=== PATIENT | female | born 1960 | race Caucasian/White ===

== ENCOUNTER 2018-11-27 19:07 | Inpatient (IN) ==
[2018-11-27] MEDS ORDERED: HYDROmorphone 2 MG/1 ML VIAL IV STA (19:41)
[2018-11-27] MEDS ORDERED: ONDANSETRON 4 MG/2 ML VIAL IV STA (19:41)
[2018-11-27 20:59] LABS: Basophils # 0.1 10*3/uL (0.0-0.2); Basophils % 0.5 % (0.0-0.8); Eosinophils # 0.2 10*3/uL (0.0-0.87); Eosinophils % 1.8 % (0.00-10.9); Hematocrit 37.8 VOL% (35.7-47.0); Hemoglobin 12.1 GM/DL (12.0-16.0); Immature Granulocytes % 0.6 %; Immature Granulocytes Absolute 0.08 #; Lymphocytes # 2.3 10*3/uL (1.4-4.0); Lymphocytes % 18.5 % (21.3-54.2); Mean Corpuscular Volume 95.9 FL (87-102); Mean Platelet Volume 10.2 FL (9.6-12.0); Monocytes % 5.7 % (1.7-12.7); Neutrophils % 72.9 % (38.7-73.9); Platelet Count 261 T/CUMM (130-400); Red Blood Count 3.94 MC/CUMM (3.8-5.5); Red Cell Distribution Width 12.9 % (9.3-17.3); White Blood Count 12.5 T/CUMM (4-12)
[2018-11-27 21:08] LABS: Alanine Aminotransferase 26 U/L (13-56); Albumin 3.6 G/DL (3.4-5.0); Alkaline Phosphatase 174 U/L (45-117); Aspartate Amino Transferase 16 U/L (0-37); Bilirubin,Total < 0.39 MG/DL (0.2-1.0); Blood Urea Nitrogen 57 MG/DL (7-18); Calcium 8.8 MG/DL (8.5-10.1); Glucose 141 MG/DL (74-106); INR 0.9; Osmolality,Calculated 290.8 MOS/KG (273-304); PT Patient Result 9.4 SECS; Total Protein 6.9 G/DL (6.4-8.3)
[2018-11-27] MEDS ORDERED: HYDROmorphone 2 MG/1 ML VIAL IV ONE ×2 (21:46→23:52)
[2018-11-27] MEDS ORDERED: GLUCAGON 1 MG VIAL IM PRN (23:31)
[2018-11-27] MEDS ORDERED: DEXTROSE 50% 25 GM/50 ML VIAL IV PRN (23:31)
[2018-11-27] MEDS ORDERED: ONDANSETRON 4 MG/2 ML VIAL IV PRN (23:31)
[2018-11-27] MEDS ORDERED: MAGNESIUM HYDROXIDE SUSP 30 ML UDCUP PO PRN (23:31)
[2018-11-28] MEDS: INSULIN REGULAR 100 UNIT/ML SUBCUT SCH ×4 (01:15→18:47)
[2018-11-28] MEDS: SODIUM CHLORIDE 0.9% 1,000 ML IV SCH ×2 (01:15→23:45)
[2018-11-28] MEDS: HYDROmorphone 2 MG/1 ML VIAL IV PRN ×2 (02:27→05:53)
[2018-11-28] MEDS ORDERED: METHOCARBAMOL 750 MG TABLET PO PRN (04:28)
[2018-11-28 05:08] LABS: Basophils # 0.1 10*3/uL (0.0-0.2); Basophils % 0.5 % (0.0-0.8); Eosinophils # 0.2 10*3/uL (0.0-0.87); Eosinophils % 1.6 % (0.00-10.9); Hematocrit 35.4 VOL% (35.7-47.0); Hemoglobin 11.6 GM/DL (12.0-16.0); Immature Granulocytes % 0.3 %; Immature Granulocytes Absolute 0.03 #; Lymphocytes # 2.2 10*3/uL (1.4-4.0); Lymphocytes % 21.9 % (21.3-54.2); Mean Corpuscular HGB Conc 32.8 GM/DL (32-36); Mean Corpuscular Volume 95.9 FL (87-102); Mean Platelet Volume 10.2 FL (9.6-12.0); Monocytes % 8.3 % (1.7-12.7); Neutrophils % 67.4 % (38.7-73.9); Platelet Count 238 T/CUMM (130-400); Red Blood Count 3.69 MC/CUMM (3.8-5.5); White Blood Count 9.8 T/CUMM (4-12)
[2018-11-28 05:18] LABS: Albumin 3.3 G/DL (3.4-5.0); Bilirubin,Total 0.6 MG/DL (0.2-1.0); Calcium 8.6 MG/DL (8.5-10.1); Osmolality,Calculated 295.8 MOS/KG (273-304); Total Protein 6.5 G/DL (6.4-8.3)
[2018-11-28] MEDS ORDERED: ceFAZolin 1,000 MG in SYRINGE 1 EACH IV ONE ×2 (06:00→09:00)
[2018-11-28] MEDS ORDERED: FLUDROCORTISONE 0.1 MG TABLET PO PRN (09:00)
[2018-11-28] MEDS: GABAPENTIN 600 MG TABLET PO SCH ×4 (10:07→21:26)
[2018-11-28] MEDS: VENLAFAXINE XR 75 MG CAPSULE PO SCH (10:07)
[2018-11-28] MEDS ORDERED: PROMETHAZINE 25 MG/1 ML VIAL IM PRN (10:19)
[2018-11-28] MEDS ORDERED: diphenhydrAMINE CAP 25 MG CAPSULE PO PRN (10:19)
[2018-11-28] MEDS ORDERED: BISACODYL 10 MG SUPP RECTAL PRN (10:19)
[2018-11-28] MEDS ORDERED: LACTULOSE 20 GM/30 ML UDCUP PO PRN (10:19)
[2018-11-28] MEDS ORDERED: hydrOXYzine HCL 25 MG TABLET PO PRN (10:24)
[2018-11-28] MEDS ORDERED: PROMETHAZINE 25 MG TABLET PO PRN (10:24)
[2018-11-28] MEDS ORDERED: HYDROmorphone 2 MG/1 ML VIAL IV PRN (10:24)
[2018-11-28] MEDS ORDERED: SEVOFLURANE 1 UNIT/15 MINUTE INH ONE (10:38)
[2018-11-28] MEDS ORDERED: PROPOFOL 200 MG/20 ML VIAL IV ONE (10:38)
[2018-11-28] MEDS ORDERED: fentaNYL 100 MCG/2 ML VIAL ONE (10:39)
[2018-11-28] MEDS ORDERED: MIDAZOLAM 2 MG/2 ML VIAL ONE (10:39)
[2018-11-28] MEDS ORDERED: ePHEDrine 50 MG/ML AMP ONE (10:40)
[2018-11-28] MEDS ORDERED: SCOPOLAMINE 1.5 MG PATCH TRANSDERM ONE (10:40)
[2018-11-28] MEDS ORDERED: ONDANSETRON 4 MG/2 ML VIAL ONE (10:40)
[2018-11-28] MEDS ORDERED: GLYCOPYRROLATE 0.4 MG/2 ML VIAL ONE (10:40)
[2018-11-28] MEDS ORDERED: DEXAMETHASONE 4 MG/1 ML VIAL ONE (10:40)
[2018-11-28] MEDS ORDERED: KETOROLAC 60 MG/2 ML VIAL IM ONE (10:40)
[2018-11-28] MEDS ORDERED: ACETAMINOPHEN 1,000 MG/100 ML VIAL IV ONE (10:41)
[2018-11-28] MEDS ORDERED: NEOSTIGMINE 10 MG/10 ML VIAL ONE (10:41)
[2018-11-28] MEDS ORDERED: ROCURONIUM 100 MG/10 ML VIAL IV ONE (10:41)
[2018-11-28] MEDS ORDERED: SODIUM CHLORIDE 0.9% 1,000 ML IV ONE (10:41)
[2018-11-28] MEDS ORDERED: PHENYLEPHRINE 1 MG/10 ML SYRINGE IV ONE (10:41)
[2018-11-28] MEDS: oxyCODONE/ACETAMINOPHEN 5-325 MG TABLET PO PRN ×2 (13:50→17:01)
[2018-11-28] MEDS ORDERED: TUBERCULIN SKIN TEST 0.1 ML SYRINGE INTRADERM ONE (14:16)
[2018-11-28] MEDS: ceFAZolin 1,000 MG in SYRINGE 1 EACH IV SCH (16:55)
[2018-11-28] MEDS: traMADol 50 MG TABLET PO SCH ×2 (16:56→21:27)
[2018-11-28] MEDS: TEMAZEPAM 15 MG CAPSULE PO SCH (21:26)
[2018-11-28] MEDS: PANTOPRAZOLE 20 MG TABLET PO SCH (21:26)
[2018-11-28] MEDS: QUEtiapine 100 MG TABLET PO SCH (21:27)
[2018-11-29] MEDS: ceFAZolin 1,000 MG in SYRINGE 1 EACH IV SCH ×3 (01:53→16:00)
[2018-11-29] MEDS: SODIUM CHLORIDE 0.9% 1,000 ML IV SCH ×2 (02:50→15:31)
[2018-11-29 04:39] LABS: Basophils % 0.2 % (0.0-0.8); Eosinophils % 0.1 % (0.00-10.9); Hematocrit 29.1 VOL% (35.7-47.0); Hemoglobin 9.3 GM/DL (12.0-16.0); Immature Granulocytes % 0.4 %; Immature Granulocytes Absolute 0.04 #; Lymphocytes # 1.4 10*3/uL (1.4-4.0); Lymphocytes % 13.7 % (21.3-54.2); Mean Platelet Volume 10.4 FL (9.6-12.0); Monocytes % 6.2 % (1.7-12.7); Neutrophils % 79.4 % (38.7-73.9); Platelet Count 189 T/CUMM (130-400); Red Blood Count 2.94 MC/CUMM (3.8-5.5); Red Cell Distribution Width 13.1 % (9.3-17.3); White Blood Count 10.1 T/CUMM (4-12)
[2018-11-29 05:15] LABS: Calcium 7.9 MG/DL (8.5-10.1)
[2018-11-29] MEDS: FONDAPARINUX 2.5 MG/0.5 ML SYRINGE SUBCUT SCH (05:28)
[2018-11-29] MEDS: INSULIN REGULAR 100 UNIT/ML SUBCUT SCH ×4 (05:41→18:13)
[2018-11-29] MEDS: oxyCODONE/ACETAMINOPHEN 5-325 MG TABLET PO PRN ×2 (09:50→18:44)
[2018-11-29] MEDS: VENLAFAXINE XR 75 MG CAPSULE PO SCH (09:52)
[2018-11-29] MEDS: TORSEMIDE 20 MG TABLET PO SCH (09:54)
[2018-11-29] MEDS: GABAPENTIN 600 MG TABLET PO SCH ×4 (09:54→21:24)
[2018-11-29] MEDS: CLOPIDOGREL 75 MG TABLET PO SCH (09:55)
[2018-11-29] MEDS: LEVOTHYROXINE 137 MCG TABLET PO SCH (09:56)
[2018-11-29] MEDS: traMADol 50 MG TABLET PO SCH ×3 (11:24→21:23)
[2018-11-29] MEDS: QUEtiapine 100 MG TABLET PO SCH (21:23)
[2018-11-29] MEDS: PANTOPRAZOLE 20 MG TABLET PO SCH (21:23)
[2018-11-29] MEDS: TEMAZEPAM 15 MG CAPSULE PO SCH (21:24)
[2018-11-30] MEDS: INSULIN REGULAR 100 UNIT/ML SUBCUT SCH ×4 (00:34→19:24)
[2018-11-30 04:47] LABS: Basophils # 0.1 10*3/uL (0.0-0.2); Basophils % 0.6 % (0.0-0.8); Eosinophils # 0.2 10*3/uL (0.0-0.87); Eosinophils % 2.4 % (0.00-10.9); Hematocrit 29.1 VOL% (35.7-47.0); Hemoglobin 9.2 GM/DL (12.0-16.0); Immature Granulocytes % 0.2 %; Immature Granulocytes Absolute 0.02 #; Lymphocytes # 2.2 10*3/uL (1.4-4.0); Lymphocytes % 26.2 % (21.3-54.2); Mean Corpuscular HGB Conc 31.6 GM/DL (32-36); Mean Corpuscular Volume 100.3 FL (87-102); Mean Platelet Volume 10.4 FL (9.6-12.0); Monocytes % 9.1 % (1.7-12.7); Neutrophils % 61.5 % (38.7-73.9); Platelet Count 192 T/CUMM (130-400); White Blood Count 8.4 T/CUMM (4-12)
[2018-11-30 05:12] LABS: Calcium 8.3 MG/DL (8.5-10.1); Osmolality,Calculated 288.7 MOS/KG (273-304)
[2018-11-30] MEDS: FONDAPARINUX 2.5 MG/0.5 ML SYRINGE SUBCUT SCH (06:35)
[2018-11-30] MEDS: ceFAZolin 1,000 MG in SYRINGE 1 EACH IV SCH ×2 (08:00)
[2018-11-30] MEDS: oxyCODONE/ACETAMINOPHEN 5-325 MG TABLET PO PRN (08:35)
[2018-11-30] MEDS: traMADol 50 MG TABLET PO SCH ×3 (08:36→21:00)
[2018-11-30] MEDS: GABAPENTIN 600 MG TABLET PO SCH ×4 (08:36→21:00)
[2018-11-30] MEDS: TORSEMIDE 20 MG TABLET PO SCH (08:36)
[2018-11-30] MEDS: VENLAFAXINE XR 75 MG CAPSULE PO SCH (08:36)
[2018-11-30] MEDS: LEVOTHYROXINE 137 MCG TABLET PO SCH (08:37)
[2018-11-30] MEDS: CLOPIDOGREL 75 MG TABLET PO SCH (08:37)
[2018-11-30] MEDS ORDERED: MORPHINE 4 MG/1 ML VIAL IV PRN (10:46)
[2018-11-30] MEDS: TEMAZEPAM 15 MG CAPSULE PO SCH (21:00)
[2018-11-30] MEDS: PANTOPRAZOLE 20 MG TABLET PO SCH (21:00)
[2018-11-30] MEDS: QUEtiapine 100 MG TABLET PO SCH (21:01)
[2018-12-01] MEDS: FONDAPARINUX 2.5 MG/0.5 ML SYRINGE SUBCUT SCH (05:27)
[2018-12-01] MEDS: INSULIN REGULAR 100 UNIT/ML SUBCUT SCH ×4 (06:37→17:04)
[2018-12-01] MEDS: oxyCODONE/ACETAMINOPHEN 5-325 MG TABLET PO PRN ×2 (07:28→18:44)
[2018-12-01] MEDS: LEVOTHYROXINE 137 MCG TABLET PO SCH (07:59)
[2018-12-01] MEDS: TORSEMIDE 20 MG TABLET PO SCH (08:00)
[2018-12-01] MEDS: GABAPENTIN 600 MG TABLET PO SCH ×4 (08:39→20:05)
[2018-12-01] MEDS: CLOPIDOGREL 75 MG TABLET PO SCH (08:39)
[2018-12-01] MEDS: VENLAFAXINE XR 75 MG CAPSULE PO SCH (08:39)
[2018-12-01] MEDS: traMADol 50 MG TABLET PO SCH ×3 (08:41→20:05)
[2018-12-01] MEDS: TEMAZEPAM 15 MG CAPSULE PO SCH (20:05)
[2018-12-01] MEDS: PANTOPRAZOLE 20 MG TABLET PO SCH (20:05)
[2018-12-01] MEDS: QUEtiapine 100 MG TABLET PO SCH (20:07)
[2018-12-02] MEDS: INSULIN REGULAR 100 UNIT/ML SUBCUT SCH ×4 (01:06→18:36)
[2018-12-02] MEDS: oxyCODONE/ACETAMINOPHEN 5-325 MG TABLET PO PRN ×2 (01:43→10:49)
[2018-12-02 05:41] LABS: Calcium 8.7 MG/DL (8.5-10.1); Osmolality,Calculated 296.4 MOS/KG (273-304)
[2018-12-02 05:44] LABS: Basophils # 0.1 10*3/uL (0.0-0.2); Eosinophils # 0.2 10*3/uL (0.0-0.87); Eosinophils % 2.3 % (0.00-10.9); Hematocrit 29.2 VOL% (35.7-47.0); Hemoglobin 9.5 GM/DL (12.0-16.0); Immature Granulocytes % 1.7 %; Immature Granulocytes Absolute 0.13 #; Lymphocytes # 1.8 10*3/uL (1.4-4.0); Lymphocytes % 23.2 % (21.3-54.2); Mean Corpuscular HGB Conc 32.5 GM/DL (32-36); Mean Corpuscular Volume 97.3 FL (87-102); Mean Platelet Volume 10.9 FL (9.6-12.0); Monocytes % 7.4 % (1.7-12.7); Neutrophils % 64.4 % (38.7-73.9); Platelet Count 259 T/CUMM (130-400); Red Cell Distribution Width 12.4 % (9.3-17.3); White Blood Count 7.8 T/CUMM (4-12)
[2018-12-02] MEDS: FONDAPARINUX 2.5 MG/0.5 ML SYRINGE SUBCUT SCH (06:17)
[2018-12-02] MEDS ORDERED: hydrALAZINE 20 MG/1 ML VIAL IV PRN (08:36)
[2018-12-02] MEDS: traMADol 50 MG TABLET PO SCH ×3 (08:56→20:40)
[2018-12-02] MEDS: CLOPIDOGREL 75 MG TABLET PO SCH (08:56)
[2018-12-02] MEDS: GABAPENTIN 600 MG TABLET PO SCH ×4 (08:56→20:39)
[2018-12-02] MEDS: LEVOTHYROXINE 137 MCG TABLET PO SCH (08:56)
[2018-12-02] MEDS: TORSEMIDE 20 MG TABLET PO SCH (08:56)
[2018-12-02] MEDS: VENLAFAXINE XR 75 MG CAPSULE PO SCH (08:56)
[2018-12-02 09:30] LABS: Osmolality,Calculated 290.8 MOS/KG (273-304)
[2018-12-02] MEDS: POLYETHYLENE GLYCOL POWDER 17 GM PACK PO SCH (10:50)
[2018-12-02] MEDS: amLODIPine 2.5 MG TABLET PO SCH ×2 (11:43→20:39)
[2018-12-02] MEDS: Plecanatide [Trulance] 3 MG PO SCH (15:57)
[2018-12-02] MEDS: QUEtiapine 100 MG TABLET PO SCH (20:38)
[2018-12-02] MEDS: PANTOPRAZOLE 20 MG TABLET PO SCH (20:39)
[2018-12-02] MEDS: TEMAZEPAM 15 MG CAPSULE PO SCH (20:39)
[2018-12-03] MEDS: INSULIN REGULAR 100 UNIT/ML SUBCUT SCH ×5 (00:17→23:56)
[2018-12-03] MEDS: FONDAPARINUX 2.5 MG/0.5 ML SYRINGE SUBCUT SCH (05:48)
[2018-12-03] MEDS: VENLAFAXINE XR 75 MG CAPSULE PO SCH (08:44)
[2018-12-03] MEDS: GABAPENTIN 600 MG TABLET PO SCH ×4 (08:44→20:14)
[2018-12-03] MEDS: amLODIPine 2.5 MG TABLET PO SCH ×2 (08:44→20:14)
[2018-12-03] MEDS: Plecanatide [Trulance] 3 MG PO SCH (08:45)
[2018-12-03] MEDS: TORSEMIDE 20 MG TABLET PO SCH (08:45)
[2018-12-03] MEDS: CLOPIDOGREL 75 MG TABLET PO SCH (08:45)
[2018-12-03] MEDS: traMADol 50 MG TABLET PO SCH ×3 (08:45→20:14)
[2018-12-03] MEDS: POLYETHYLENE GLYCOL POWDER 17 GM PACK PO SCH (08:46)
[2018-12-03] MEDS: LEVOTHYROXINE 137 MCG TABLET PO SCH (08:46)
[2018-12-03] MEDS: oxyCODONE/ACETAMINOPHEN 5-325 MG TABLET PO PRN ×2 (09:47→22:08)
[2018-12-03] MEDS: TEMAZEPAM 15 MG CAPSULE PO SCH (20:15)
[2018-12-03] MEDS: PANTOPRAZOLE 20 MG TABLET PO SCH (20:15)
[2018-12-03] MEDS: QUEtiapine 100 MG TABLET PO SCH (20:17)
[2018-12-04] MEDS: FONDAPARINUX 2.5 MG/0.5 ML SYRINGE SUBCUT SCH (05:43)
[2018-12-04] MEDS: INSULIN REGULAR 100 UNIT/ML SUBCUT SCH (06:30)
[2018-12-04 07:46] VITALS: BP 181/60
== END 2018-12-04 10:25 | disposition home or self-care (01) | DRG 482 ==
LOC: N.ED 19:07 → N.EDINP 21:47 → N.3E 22:19
PROVIDERS: ADMIT Orthopaedic Surgery; ATTEND Orthopaedic Surgery